=== PATIENT | male | born 1985 | race Hispanic/Latino ===

== ENCOUNTER 2021-08-09 10:31 | Emergency (ER) | payer SELFPAY ==
[2021-08-09 11:12] LABS: #Basophils 0.1 thou/uL (0.0-0.2); #Eosinphils 0.1 thou/uL (0.0-0.7); #Lymphocytes 1.5 thou/uL (1.20-3.40); #Monocytes 0.5 thou/uL (0.11-0.59); #Neutrophils 6.7 thou/uL (1.40-6.50); %Basophils 0.8 % (0.0-1.0); %Eosinophils 0.8 % (0.0-10.0); %Lymphocytes 16.9 % (21.0-51.0); %Monocytes 5.8 % (0.0-10.0); %Neutrophils 75.7 % (42.0-75.0); Hemoglobin 16.6 g/dL (14.0-18.0); Mean Corpuscular HGB CONC 32.1 g/dL (32.0-36.0); Mean Corpuscular Volume 90.3 fL (78.0-98.0); Platelet Count 311 thou/uL (130-400); Red Blood Cell (RBC) Count 5.74 mill/uL (4.70-6.10); White Blood Cell (WBC) Count 8.8 thou/uL (4.8-10.8)
[2021-08-09] MEDS ORDERED: Ketorolac Tromethamine 30 MG/ML VIAL ONE ×2 (11:18)
[2021-08-09 11:34] LABS: ALT (SGPT) 48 U/L (8-55); AST (SGOT) 19 U/L (5-34); Albumin 4.3 g/dL (3.5-5.0); Alkaline Phosphatase 51 U/L (40-110); Anion Gap 12 mmol/L (10-20); BUN (Urea Nitrogen) 10 mg/dL (8.9-20.6); Calc. Creatinine Clearance 0 mL/min (70-130); Calcium 9.4 mg/dL (7.8-10.44); Carbon Dioxide 25 mmol/L (22-29); Chloride 105 mmol/L (98-107); Globulin 3.1 g/dL (2.4-3.5); Glucose 105 mg/dL (70-105); Potassium 4.2 mmol/L (3.5-5.1); Protein, Total 7.4 g/dL (6.0-8.3); Sodium 138 mmol/L (136-145)
[2021-08-09 15:41] LABS: SARS-CoV-2 PCR by NAA Not Detected (NotDetected)
== END 2021-08-09 13:33 | disposition home or self-care (01) ==
LOC: ERS 10:31
DX: B34.9 Viral infection, unspecified (principal); R07.9 Chest pain, unspecified; Z20.822 Contact with and (suspected) exposure to COVID-19; I10 Essential (primary) hypertension; Z91.14 Patient's other noncompliance with medication regimen
CPT/HCPCS: 36415; 71045; 80053; 84484; 85025; 87804; 93005; 96372; J1885; U0003; U0005

== ENCOUNTER 2023-08-21 03:11 | Observation (INO) | payer OTHER, SELFPAY ==
[2023-08-21] MEDS ORDERED: Morphine 4 MG/ML VIAL ONE ×2 (03:34→04:27)
[2023-08-21] MEDS ORDERED: Ondansetron PF 4 MG/2 ML Vial ONE ×3 (03:35→09:53)
[2023-08-21 03:53] LABS: Bacteria/HPF None Seen HPF (None Seen); Bilirubin Negative (Negative); Blood, Urine Negative (Negative); CAUTI Indications for Culture Pelvic or flank pain; Clarity Clear (Clear); Glucose, Urine (Dipstick) Normal (Negative); Ketone, Urine Negative (Negative); Leukocyte Negative Leu/uL (Negative); Nitrite Negative (Negative); Protein, Urine (Dipstick) Negative (Neg-Trace); RBC/HPF None Seen HPF (0-3); Specific Gravity, Urine 1.017 (1.002-1.036); Squamous Epithelial None Seen HPF (0-3); Urobilinogen Normal mg/dL (Less than 2); WBC/HPF 0-3 HPF (0-3)
[2023-08-21 03:55] LABS: Urine Culture Reflex No No
[2023-08-21 04:10] LABS: #Basophils 0.1 thou/uL (0.0-0.2); #Eosinphils 0.1 thou/uL (0.0-0.7); #Monocytes 0.7 thou/uL (0.11-0.59); #Neutrophils 6.7 thou/uL (1.40-6.50); %Basophils 0.6 % (0.0-1.0); %Eosinophils 1.3 % (0.0-10.0); %Lymphocytes 26.5 % (21.0-51.0); %Monocytes 6.7 % (0.0-10.0); %Neutrophils 64.3 % (42.0-75.0); Hematocrit 45.7 % (42.0-52.0); Mean Corpuscular Hemoglobin 29.6 pg (27.0-31.0); Mean Corpuscular Volume 84.6 fl (78.0-98.0); Mean Platelet Volume 9.9 fL (7.4-10.4); Platelet Count 296 10x3/uL (130-400); RBC Distribution Width 12.6 % (11.5-14.5); White Blood Cell (WBC) Count 10.4 10x3/uL (4.8-10.8)
[2023-08-21 05:56] LABS: ALT (SGPT) 37 U/L (8-55); AST (SGOT) 15 U/L (5-34); Albumin 3.9 g/dL (3.5-5.0); Alkaline Phosphatase 44 U/L (40-110); Anion Gap 10 mmol/L (10-20); BUN (Urea Nitrogen) 13 mg/dL (8.9-20.6); Bilirubin, Total 0.3 mg/dL (0.2-1.2); Calc. Creatinine Clearance 0 mL/min (70-130); Calcium 8.4 mg/dL (7.8-10.44); Carbon Dioxide 29 mmol/L (22-29); Chloride 102 mmol/L (98-107); Estimated GFR 113; Globulin 2.6 g/dL (2.4-3.5); Glucose 125 mg/dL (70-105); Lipase 27 U/L (8-78); Potassium 4.1 mmol/L (3.5-5.1); Protein, Total 6.5 g/dL (6.0-8.3); Sodium 137 mmol/L (136-145)
[2023-08-21] MEDS ORDERED: LevoFLOXacin 500 mg/D5W 100 ML BAG ONE (05:57)
[2023-08-21 06:42] VITALS: BMI 29.5
[2023-08-21] MEDS ORDERED: Morphine 2 MG/ML VIAL SLOW IVP PRN (06:42)
[2023-08-21] MEDS ORDERED: Ondansetron PF 4 MG/2 ML Vial IVP PRN (06:45)
[2023-08-21] MEDS ORDERED: Ondansetron ODT 4 MG TAB SL PRN (06:45)
[2023-08-21] MEDS ORDERED: Sodium Chloride 0.9% 1,000 ML IV SCH (06:45)
[2023-08-21] MEDS ORDERED: Acetaminophen 325 MG TAB PO PRN (06:45)
[2023-08-21] MEDS ORDERED: Bupivacaine PF 0.5% 30 ML VIAL ONE (07:24)
[2023-08-21] MEDS ORDERED: EPINEPHrine 1 MG/ML VIAL ONE (07:24)
[2023-08-21] MEDS ORDERED: Ketorolac Tromethamine 30 MG/ML VIAL IVP SCH (08:15)
[2023-08-21] MEDS ORDERED: fentaNYL PF 100 MCG/2 ML SYRINGE ONE (08:57)
[2023-08-21] MEDS ORDERED: PROPOFOL 20 ML ONE (08:57)
[2023-08-21] MEDS ORDERED: Lidocaine 1% PF 5 ML VIAL ONE ×2 (08:58→09:15)
[2023-08-21] MEDS ORDERED: Rocuronium Bromide 10 MG/ML (10ML VIAL) ONE ×2 (08:58→09:15)
[2023-08-21] MEDS ORDERED: Sodium Chloride 0.9% 100 ML ONE (08:59)
[2023-08-21] MEDS ORDERED: CEFAZOLIN 2 GM VIAL ONE (08:59)
[2023-08-21] MEDS ORDERED: Glycopyrrolate 0.2 MG/ML 5 ML SYRINGE ONE ×2 (09:15→09:53)
[2023-08-21] MEDS ORDERED: PROPOFOL 200 MG/20 ML VIAL ONE (09:15)
[2023-08-21] MEDS ORDERED: Ketorolac Tromethamine 30 MG/ML VIAL ONE ×2 (09:15→09:53)
[2023-08-21] MEDS ORDERED: Dexamethasone 20 MG/5 ML VIAL ONE (09:15)
[2023-08-21] MEDS ORDERED: NEOSTIGMINE 3 MG/3 ML SYR 3 MG/3 ML SYRINGE ONE ×2 (09:15→09:53)
[2023-08-21] MEDS ORDERED: Dexamethasone 4 mg/ml Vial ONE (09:53)
[2023-08-21] MEDS ORDERED: Promethazine HCl 25 MG/ML VIAL IM PRN (10:05)
[2023-08-21] MEDS ORDERED: HYDROmorphone 2 MG/ML VIAL SLOW IVP PRN (10:05)
[2023-08-21] MEDS ORDERED: Meperidine HCl/PF 25 MG/ML VIAL SLOW IVP PRN (10:05)
[2023-08-21] MEDS ORDERED: Ondansetron HCl/PF 4 MG/2 ML Vial IVP PRN (10:05)
[2023-08-21] MEDS ORDERED: fentaNYL 50 mcg/mL 1 mL Vial ONE (10:27)
[2023-08-21] MEDS ORDERED: traMADol HCl 50 MG TAB PO PRN (10:57)
[2023-08-21] MEDS: Acetaminophen 500 MG TAB PO SCH ×2 (11:59→16:06)
[2023-08-21] MEDS: Sodium Chloride 0.9% 1,000 ML IV SCH ×2 (12:08→16:22)
[2023-08-21 12:11] VITALS: TEMP 97.4
[2023-08-21] MEDS ORDERED: Ketorolac Tromethamine 30 MG/ML VIAL IVP PRN (14:15)
[2023-08-21 16:10] VITALS: BP 142/91
[2023-08-22] MEDS ORDERED: LevoFLOXacin 500 mg/D5W 500 MG in Premix 1 BAG IVPB SCH (06:00)
== END 2023-08-21 16:40 | disposition home or self-care (01) ==
LOC: ERS 03:11 → INTOOBSV 06:39 → SURG A 06:39
PROVIDERS: ADMIT Specialist; ATTEND Specialist
PROC: 0FT44ZZ Resection of Gallbladder, Percutaneous Endoscopic Approach (ICD-10-PCS; principal; 2023-08-21)
DX: K80.12 Calculus of gallbladder with acute and chronic cholecystitis without obstruction (principal); I10 Essential (primary) hypertension; F17.210 Nicotine dependence, cigarettes, uncomplicated
CPT/HCPCS: 36415; 76705; 80053; 81001; 83690; 85025; 88304; 93005; 96361; 96365; 96375; 96376; C1889; J0171; J1100; J1885; J1956; J2270; J2405; J2704; J3010; J3490; S0020